=== PATIENT | female | born 1975 | race Caucasian/White ===

== ENCOUNTER 2018-04-15 20:35 | Emergency (ER) | payer SELFPAY ==
[~2018-04-15] VITALS: Ht 170.2 cm; Wt 102.0 kg
[2018-04-15] MEDS ORDERED: BACTRIM,SEPT1 TABLET PO (22:17)
[2018-04-15 22:28] VITALS: BP 158/98
== END 2018-04-15 22:29 | disposition home or self-care (01) ==
LOC: RME 20:35 → EME 20:35 → RME 22:29
DX: T21.22XA Burn of second degree of abdominal wall, initial encounter (principal); T31.0 Burns involving less than 10% of body surface; B96.89 Other specified bacterial agents as the cause of diseases classified elsewhere; X12.XXXA Contact with other hot fluids, initial encounter; Y93.G3 Activity, cooking and baking; J45.909 Unspecified asthma, uncomplicated; I10 Essential (primary) hypertension; Z85.3 Personal history of malignant neoplasm of breast
CPT/HCPCS: 99281; 99283